=== PATIENT | male | born 1995 | race Asian ===

== ENCOUNTER 2018-07-16 12:46 | Emergency (ER) | payer OTHER ==
[2018-07-16 12:53] VITALS: BP 135/91
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
== END 2018-07-16 14:18 | disposition home or self-care (01) ==
DX: S06.0X0A Concussion without loss of consciousness, initial encounter (principal); V49.00XA Driver injured in collision with unspecified motor vehicles in nontraffic accident, initial encounter